=== PATIENT | male | born 1980 | race Caucasian/White ===

== ENCOUNTER 2024-11-29 11:25 | Day surgery (SDC) | payer MEDICAID, SELFPAY ==
[2024-11-25 13:09] VITALS: BMI 38.0
[2024-11-29 12:04] VITALS: BP 121/71; PULSE 70; RESP 16; TEMP 36.3; O2SAT 98
[2024-11-29] MEDS: LACTATED RINGERS 1000ML 1,000 ML 50 ML IV (12:04)
--- NOTE | 2024-11-29 12:31 | P.PNANES_ITS ---
[facility] Disclaimer: The information contained in this section may have been updated after the patient was seen, as this information can be updated by other users. Medical History Hemorrhoid Diverticulitis Surgical History History of colonoscopy No history of previous surgery Family History Grandmother Bladder cancer Other Cancer Social History Smoking Status: Never smoker alcohol intake: current alcohol intake frequency: holidays/special occasions only substance use type: marijuana current occupational status: employed Travel in the last 8 weeks?: Inside the [place] Have you lived/traveled outside [place] in past 30 days?: No Contact w/someone who lives/traveled outside US past 30 days?: No Exposure to someone with infectious disease in past 14 days?: No Do you have a fever (greater than 100.4 F or 38 C)?: No Have you tested positive for COVID-19?: No Exposed to someone with COVID-19 in past 14 days?: No Do you have a sore throat?: No Do you have a cough?: No Do you have any weakness?: No Are you experiencing any nausea/vomitting?: No Do you have any diarrhea?: No Are you experiencing any unusual bleeding?: Yes Do you have any muscle aches/pain?: No Do you have any abdominal pain?: No Are you experiencing loss of taste or smell?: No [facility] Anesthesia Checklist Patient Identification Patient Identification: Arm Band Structural Data Admitted From: Home Planned Operative Procedure/s: Flexible Sigmoidoscopy Consent for Planned Operative Procedure(s) Verified: Yes Verified Documents: Surgical Consent and History and Physical NPO Status Verified Time NPO: 08:00 (finished prep) Additional verifications Anesthesia Reactions: No Airway Assessment Mallampati Score:: Class II C-Spine Mobility Assessed: Yes TMJ Mobility Assessed: Yes Dentition: Good Dentition Neurological Assessment Level of Consciousness: Awake, Alert and Appropriate Anesthesia Plan Anesthesia Risk discussed: Yes Anesthesia Plan: Verified ASA Class: II Anesthesia Type: MAC
--- NOTE | 2024-11-29 12:52 | EXP.HP ---
History of Present Illness *Admission Date: 11/29/24 *Reason for visit:: Hemorrhoidal bleeding *History of present illness: Mr. Barker is a 44-year-old gentleman who is here for diagnostic/therapeutic sigmoidoscopy secondary to frequently bleeding internal hemorrhoids. The examination is deemed medically necessary for sigmoidoscopy with possible hemorrhoid band ligation. The patient has been seen, interviewed and examined prior to the procedure by both myself and the anesthesia provider. [facility] Disclaimer: The information contained in this section may have been updated after the patient was seen, as this information can be updated by other users. Medical History (Updated 11/29/24 @ 12:53 by Thomas Ramon II, MD) Hemorrhoid Diverticulitis Surgical History History of colonoscopy No history of previous surgery Family History Grandmother Bladder cancer Other Cancer Social History Smoking Status: Never smoker alcohol intake: current alcohol intake frequency: holidays/special occasions only substance use type: marijuana current occupational status: employed Travel in the last 8 weeks?: Inside the [place] Have you lived/traveled outside [place] in past 30 days?: No Contact w/someone who lives/traveled outside [place] past 30 days?: No Exposure to someone with infectious disease in past 14 days?: No Do you have a fever (greater than 100.4 F or 38 C)?: No Have you tested positive for COVID-19?: No Exposed to someone with COVID-19 in past 14 days?: No Do you have a sore throat?: No Do you have a cough?: No Do you have any weakness?: No Are you experiencing any nausea/vomitting?: No Do you have any diarrhea?: No Are you experiencing any unusual bleeding?: Yes Do you have any muscle aches/pain?: No Do you have any abdominal pain?: No Are you experiencing loss of taste or smell?: No Review of Systems Review of Systems Review of systems (narrative): Negative *Cardiovascular Comments: Negative *Gastrointestinal Comments: Negative *Genitourinary Comments: Negative *Musculoskeletal Comments: Negative *Neurologic Comments: Negative Meds Home Medications and Allergies Home Medications ?Medication ?Instructions ?Recorded ?Confirmed ?Type omeprazole 20 mg capsule,delayed 20 mg PO DAILY #90 caps 09/23/24 11/29/24 Rx release hydrocortisone acetate 25 mg 25 mg WI BID internal Hemorrhoids 09/27/24 11/29/24 Rx rectal suppository #12 ea sodium,potassium,mag sulfates 17.5 See Rx Instructions PO .COMPLEX 11/15/24 11/29/24 Rx gram-3.13 gram-1.6 gram oral soln #354 mL (Suprep Bowel Prep Kit) New Prescriptions to Start Prescriptions: Allergies Allergy/AdvReac Type Severity Reaction Status Date / Time sulfamethoxazole (From Allergy Severe Anaphylaxis Verified 11/29/24 11:51 Bactrim) trimethoprim (From Bactrim) Allergy Severe Anaphylaxis Verified 11/29/24 11:51 Exam Data for Last 24 hours Vital signs and Labs for Last 24 Hours: Temp Pulse Resp BP Pulse Ox O2 Del Method 97.4 F L 70 16 121/71 98 Room Air 11/29/24 12:04 11/29/24 12:04 11/29/24 12:04 11/29/24 12:04 11/29/24 12:04 11/29/24 12:04 *Routine HEENT Exam Head: Present normocephalic Eye: Present EOMI and PERRL ENT: Present mucous membranes moist *Routine Neck Exam Neck: Present supple *Routine Respiratory Exam Respiratory: Present CTA bilaterally *Routine Cardiovascular Exam Cardiovascular: Present RRR *Routine Abdominal Exam Abdominal: Present soft and normoactive bowel sounds; Absent tenderness *Routine Rectal Exam Rectal:: deferred *Routine Genitalia Exam Genitalia:: deferred *Routine Extremities Exam Extremities: Absent cyanosis, clubbing or edema *Routine Skin Exam Skin: Present warm; Absent rash *Routine Neurological Exam Neurological: Present alert and oriented X3 Assessment and Plan *Assessment and plan (1) Rectal bleeding: Status: Acute Category: Medical Code(s): K62.5 - Hemorrhage of anus and rectum (2) Bleeding internal hemorrhoids: Status: Acute Category: Medical Code(s): K64.8 - Other hemorrhoids Plan A/P: 1. Rectal bleeding with presumed bleeding internal hemorrhoids is the preprocedural diagnosis. The patient will be anesthetized/sedated using MAC sedation. The patient has been seen and examined. Cardiac and lung assessment prior to the examination is stable. Proceed with planned sigmoidoscopy with possible hemorrhoid band ligation or hemorrhoid ablation.
[2024-11-29 12:57] VITALS: O2SAT 100
--- NOTE | 2024-11-29 13:09 | P.PCN_ITS ---
[facility] Procedure Note Date: 11/29/24 Time: 13:17 Procedure Note:: Flexible Sigmoidoscopy Procedure Report: Sigmoidoscopy with hemorrhoid band ligation Endoscopist: Thomas Ramon II, MD Referring physician: Helena Hernandez PA-C Date of Procedure: November 29, 2024 Equipment: Olympus 180 variable stiffness pediatric colonoscope Sedation: MAC sedation Indication: Mr. Barker is a 44-year-old gentleman with bright red rectal bleeding that occurs regularly and daily. He did have a colonoscopy in January 2023 (Ismael Marquez MD) and also had a perirectal abscess in 2022. At the time of his colonoscopy was told that there were no abnormalities. He does report hemorrhoidal prolapse and the rectal bleeding has been getting worse. This occurs with every bowel movement. He does note some blood clots and dripping down his legs. He was found to have diverticulosis at the time of his colonoscopy in 2022. The patient has tried Preparation H suppositories and cream without improvement. He reports no NSAID use. Procedure: Prior to the procedure, a history and physical exam was performed, and patient's medications and allergies were reviewed. The risks, benefits and alternatives of the sedation and procedure were discussed with the patient. All questions were answered and informed consent was obtained. The patient was brought to the procedure room. Patient identification and proposed procedure were verified by the physician and the nurse. The patient was placed in a left lateral decubitus position and the scope was passed under direct vision. Throughout the procedure, the patient's blood pressure, pulse, and oxygen saturations were monitored continuously. The colonoscopy was accomplished without difficulty. The patient tolerated the procedure well. Findings: On digital rectal examination there was normal rectal tone there was 1 external hemorrhoid as well as internal hemorrhoidal prolapse. The scope was then inserted through the anal canal into the rectum and advanced to 60 cm. The preparation was excellent. Upon withdrawal, there were diverticula throughout the descending and sigmoid colon. The rectum was normal. Upon retroflexion there were grade 3 internal hemorrhoids. 3 columns of hemorrhoids were banded using 3 bands with excellent ligation effect. Impression: 1. Left-sided diverticulosis 2. Grade 3 internal hemorrhoids status post band ligation x 3 Plan: I am going to recommend improved psyllium bulking fiber supplementation with Konsyl 1 tablespoon mixed in 8 to 10 ounces of juice or water daily. I am also going to recommend Vasculera. Vasculera is a treatment in the management of hemorrhoids and is considered a dietary supplemental treatment. The active ingredient helps to improve venous tone and reduction of capillary resistance which is disordered and hemorrhoidal disease. It improves lymphatic drainage and inflammation in the micro-circulation. Multiple studies have shown reduction of bleeding, discomfort, swelling and inflammation of hemorrhoids and improved resolution of symptoms in a shorter time. It is a very safe medical alternative to hemorrhoid management.
[2024-11-29 13:23] VITALS: BP 143/70; PULSE 100; RESP 16; TEMP 36.4; O2SAT 93
[2024-11-29 13:33] VITALS: BP 137/74; PULSE 94; RESP 16; O2SAT 94
[2024-11-29 13:43] VITALS: BP 128/80; PULSE 92; RESP 16; O2SAT 94
[2024-11-29 13:53] VITALS: BP 144/72; PULSE 93; RESP 16; TEMP 36.4; O2SAT 95
== END 2024-11-29 14:10 | disposition home or self-care (01) ==
PROVIDERS: PCP Physician Assistant; Visit Provider Internal Medicine Gastroenterology
PROC: 0DJD8ZZ Inspection of Lower Intestinal Tract, Via Natural or Artificial Opening Endoscopic (ICD-10-PCS; CPT 45330; principal; 2024-11-29 13:00)
DX: K62.5 Hemorrhage of anus and rectum (principal); K64.4 Residual hemorrhoidal skin tags; K64.2 Third degree hemorrhoids; K57.30 Diverticulosis of large intestine without perforation or abscess without bleeding
CPT/HCPCS: 45350; C1889; J7120